=== PATIENT | male | born 1940 | race Caucasian/White ===

== ENCOUNTER 2018-10-23 13:46 | Outpatient (CLI) | payer MEDICARE, BC ==
--- NOTE | 2018-10-23 16:23 | MRI ---
MRI OF THE ABDOMEN WITHOUT AND WITH CONTRAST: Comparison: None. History: Previous abnormal MRI of the liver on outside exam. Technique: Multiplanar, multisequence MRI images were obtained of the abdomen without and with IV con trast. FINDINGS: There is a triangular area in the right lobe of the liver measuring approximately 9 mm in size. This demonstrates high T2 signal and rapid enhancement of the arterial phase. Persistent enhancement is se en and this most likely represents a flash filling hemangioma. No other liver lesions are seen. The gallbladder is not seen as it has likely been removed. The kidneys, adrenal glands, spleen, and p ancreas are unremarkable. No abdominal adenopathy is seen. No marrow signal abnormality is present. IMPRESSION: There is a small lesion in the right lobe of the liver which most likely represents a flash filling h emangioma. POS: C
== END 2018-10-23 13:47 | disposition home or self-care (01) ==
LOC: SCSMRI 13:46
PROVIDERS: ATTEND Family Medicine
DX: R93.2 Abnormal findings on diagnostic imaging of liver and biliary tract (principal); K76.9 Liver disease, unspecified
CPT/HCPCS: 74183

== ENCOUNTER 2019-03-01 14:32 | Outpatient (CLI) | payer MEDICARE, BC ==
--- NOTE | 2019-03-01 15:18 | RAD ---
Frontal radiograph chest and 4 views left RIBS: 03/01/2019 COMPARISON: None HISTORY: Pain in the left upper ribs FINDINGS: Midline sternotomy wires and mediastinal clips are present. No pneumothorax or pleural flui d. No focal consolidation or alveolar edema. No acute left-sided rib fracture is apparent. There are multiple old right-sided rib fractures noted. IMPRESSION: No acute left-sided rib fracture. If symptoms persist, CT or MRI suggested.
== END 2019-03-01 14:33 | disposition home or self-care (01) ==
LOC: SCSRAD 14:32
PROVIDERS: ATTEND Nurse Practitioner Family
DX: R07.81 Pleurodynia (principal)

== ENCOUNTER 2019-10-19 13:50 | Outpatient (CLI) | payer MEDICARE, BC ==
--- NOTE | 2019-10-19 15:20 | RAD ---
LEFT SHOULDER RADIOGRAPHS THREE VIEWS: 10/19/19 PROVIDED CLINICAL HISTORY: Left shoulder pain. FINDINGS: No evidence for fracture or other acute osseous abnormality. The glenohumeral relationship appears no rmal. Subacromial space is preserved. The visualized left lung field appears clear. IMPRESSION: No evidence for an acute osseous abnormality or significant arthropathy. POS: [facility]MAN
== END 2019-10-19 13:51 | disposition home or self-care (01) ==
LOC: SCSRAD 13:50
PROVIDERS: ATTEND Family Medicine
DX: M25.512 Pain in left shoulder (principal); M25.559 Pain in unspecified hip

== ENCOUNTER 2019-10-23 14:57 | Outpatient (CLI) | payer MEDICARE, BC ==
--- NOTE | 2019-10-23 15:37 | RAD ---
XR Shoulder Rt 3 View STANDARD HISTORY: Right shoulder pain and limited range of motion FINDINGS: No fracture or dislocation is identified. There are degenerative changes in the acromioclavicular ghassan nt. Old right-sided rib fractures are present.
== END 2019-10-23 14:58 | disposition home or self-care (01) ==
LOC: SCSRAD 14:57
PROVIDERS: ATTEND Family Medicine
DX: M25.511 Pain in right shoulder (principal)

== ENCOUNTER 2020-08-28 08:18 | Outpatient (CLI) | payer MEDICARE, BC | END 2020-08-28 08:19 | disposition home or self-care (01) | LOC: DTY/OP 08:18 | PROVIDERS: ATTEND Family Medicine | DX: E11.22 Type 2 diabetes mellitus with diabetic chronic kidney disease (principal); N18.9 Chronic kidney disease, unspecified | CPT/HCPCS: 97802 ==

== ENCOUNTER 2022-07-14 12:34 | Outpatient (CLI) | payer MEDICARE | END 2022-07-14 12:35 | disposition home or self-care (01) | LOC: SCSMRI 12:34 | PROVIDERS: ATTEND Family Medicine | DX: M25.512 Pain in left shoulder (principal); M75.122 Complete rotator cuff tear or rupture of left shoulder, not specified as traumatic; M67.814 Other specified disorders of tendon, left shoulder ==

== ENCOUNTER 2022-08-16 12:47 | Outpatient (CLI) | payer MEDICARE ==
[2022-08-16 14:15] LABS: #Basophils 0.1 10x3/uL (0.0-0.2); #Eosinphils 0.1 10x3/uL (0.0-0.5); #Monocytes 0.5 10x3/uL (0.0-1.1); #Neutrophils 4.7 10x3/uL (1.5-8.4); %Basophils 0.8 % (0.0-2.0); %Eosinophils 1.9 % (0.0-6.0); %Lymphocytes 24.5 % (18.0-47.0); %Monocytes 7.2 % (0.0-10.0); %Neutrophils 64.2 % (40.0-75.0); Mean Corpuscular HGB CONC 34.8 g/dL (32.0-36.0); Mean Corpuscular Hemoglobin 31.9 pg (27.0-33.0); Mean Corpuscular Volume 91.7 fl (81.2-95.1); Mean Platelet Volume 9.7 fl (7.4-10.4); Platelet Count 170 10x3/uL (150-450); RBC Distribution Width 13.1 % (11.5-14.5); Red Blood Cell (RBC) Count 5.33 10x6/uL (4.32-5.72); White Blood Cell (WBC) Count 7.4 10x3/uL (3.5-10.5)
[2022-08-16 14:41] LABS: Anion Gap 16 mmol/L (10-20); BUN (Urea Nitrogen) 26 mg/dL (8.4-25.7); Calc. Creatinine Clearance 0 mL/min (70-130); Calcium 10.2 mg/dL (7.8-10.44); Carbon Dioxide 26 mmol/L (23-31); Chloride 104 mmol/L (98-107); Estimated GFR 60; Glucose 74 mg/dL (83-110); Potassium 4.3 mmol/L (3.5-5.1); Sodium 142 mmol/L (136-145)
== END 2022-08-16 12:48 | disposition home or self-care (01) ==
LOC: LABBT 12:47
PROVIDERS: ATTEND Orthopaedic Surgery
DX: Z01.812 Encounter for preprocedural laboratory examination (principal); M75.112 Incomplete rotator cuff tear or rupture of left shoulder, not specified as traumatic
CPT/HCPCS: 80048; 85025

== ENCOUNTER 2022-08-19 06:50 | Day surgery (SDC) | payer MEDICARE ==
[2022-08-16 13:39] VITALS: BMI 26.8
[2022-08-19] MEDS ORDERED: Ropivacaine 0.2% HCl/PF 20 ML ONE (08:13)
[2022-08-19] MEDS ORDERED: fentaNYL 50 mcg/mL 1 mL Vial ONE ×2 (08:13→09:32)
[2022-08-19] MEDS ORDERED: Ropivacaine 0.5% HCl/PF (150 MG/30 ML VIAL) ONE (08:13)
[2022-08-19] MEDS ORDERED: CEFAZOLIN 2 GM VIAL ONE (08:59)
[2022-08-19] MEDS ORDERED: Sodium Chloride 0.9% 100 ML ONE (08:59)
[2022-08-19] MEDS ORDERED: Midazolam HCl 2 mg/2 ml Vial ONE (09:19)
[2022-08-19] MEDS ORDERED: Promethazine HCl 25 MG/ML VIAL IM PRN (09:30)
[2022-08-19] MEDS ORDERED: Ondansetron PF 4 MG/2 ML Vial IVP PRN (09:30)
[2022-08-19] MEDS ORDERED: HYDROcodone/Acetaminophen 10/325 mg Tablet PO PRN ×2 (09:30)
[2022-08-19] MEDS ORDERED: Zolpidem Tartrate 5 MG TAB PO PRN (09:30)
[2022-08-19] MEDS ORDERED: Ropivacaine 0.2% 550 ML 550 ML NERVE BLCK SCH (09:30)
[2022-08-19] MEDS ORDERED: traMADol HCl 50 MG TAB PO PRN ×2 (09:30)
[2022-08-19] MEDS ORDERED: Lidocaine 1% PF 5 ML VIAL ONE (09:46)
[2022-08-19] MEDS ORDERED: NEOSTIGMINE 3 MG/3 ML SYR 3 MG/3 ML SYRINGE ONE (09:46)
[2022-08-19] MEDS ORDERED: ePHEDrine Sulfate 50 MG/10 ML VIAL ONE (09:46)
[2022-08-19] MEDS ORDERED: Ondansetron PF 4 MG/2 ML Vial ONE (09:46)
[2022-08-19] MEDS ORDERED: PROPOFOL 200 MG/20 ML VIAL ONE (09:46)
[2022-08-19] MEDS ORDERED: Rocuronium Bromide 10 MG/ML (10ML VIAL) ONE (09:46)
[2022-08-19] MEDS ORDERED: Glycopyrrolate 0.2 MG/ML 5 ML SYRINGE ONE (09:46)
[2022-08-19] MEDS ORDERED: SUGAMMADEX SODIUM 200 MG/2 ML VIAL ONE (11:17)
[2022-08-19] MEDS ORDERED: Ketorolac Tromethamine 30 MG/ML VIAL IVP SCH (12:00)
== END 2022-08-19 14:40 | disposition home or self-care (01) ==
LOC: SDC 06:50
PROVIDERS: ATTEND Orthopaedic Surgery
PROC: 0LQ24ZZ Repair Left Shoulder Tendon, Percutaneous Endoscopic Approach (ICD-10-PCS; principal; 2022-08-19)
PROC: 0LS40ZZ Reposition Left Upper Arm Tendon, Open Approach (ICD-10-PCS; 2022-08-19)
PROC: 0RHK04Z Insertion of Internal Fixation Device into Left Shoulder Joint, Open Approach (ICD-10-PCS; 2022-08-19)
DX: S46.212A Strain of muscle, fascia and tendon of other parts of biceps, left arm, initial encounter (principal); M75.112 Incomplete rotator cuff tear or rupture of left shoulder, not specified as traumatic; M65.812 Other synovitis and tenosynovitis, left shoulder; I11.9 Hypertensive heart disease without heart failure; M19.90 Unspecified osteoarthritis, unspecified site; E11.9 Type 2 diabetes mellitus without complications; E89.0 Postprocedural hypothyroidism; Z87.891 Personal history of nicotine dependence; Z79.02 Long term (current) use of antithrombotics/antiplatelets; Z79.4 Long term (current) use of insulin; Z79.82 Long term (current) use of aspirin; Z79.84 Long term (current) use of oral hypoglycemic drugs; Z79.899 Other long term (current) drug therapy; Z88.8 Allergy status to other drugs, medicaments and biological substances; Z91.048 Other nonmedicinal substance allergy status; Z95.1 Presence of aortocoronary bypass graft; Z85.038 Personal history of other malignant neoplasm of large intestine
CPT/HCPCS: 23430; 29827; 82962; A4306; J3010; 36416; C1713; J2250; J2405; J2704; J2795; J3490